=== PATIENT | female | born 1950 | race Caucasian/White ===

== ENCOUNTER 2016-07-21 20:26 | Emergency (ER) | payer OTHER ==
[2016-07-21 20:38] VITALS: BP 157/82
--- NOTE | 2016-07-21 21:03 | ED INFLUENZA/URI COMPLAINT ---
History of Present Illness General Chief Complaint: General Adult Stated Complaint: PT NOT FEELING WELL ,HURT WHEN SHE COUGH Source: patient Exam Limitations: no limitations Vital Signs & Intake/Output Vital Signs & Intake/Output Vital Signs Date Time Temp Pulse Resp B/P Pulse O2 O2 Flow FiO2 Ox Delivery Rate 07/21 2109 Room Air 07/21 2037 99.0 84 22 157/82 95 ED Intake and Output 07/22 0000 07/21 1200 Intake Total 0 Output Total Balance 0 Intake, Oral 0 Patient 125 lb Weight Allergies Coded Allergies: NO KNOWN ALLERGIES (12/01/12) Reconcile Medications Amoxicillin/Potassium Clav (Augmentin 875-125 Tablet) 875 MG-125 MG TABLET 1 TAB PO BID BRONCHITIS Benzonatate (Tessalon Perle) 100 MG CAPSULE 1 CAP PO TID PRN COUGH Triage Note: PER PT COUGH, BODY ACHES X 1 WEEK, DID NOT SEE PMD BUT FEELING LIKE "CRAP" NO CP NO SOB, SOUNDS CONGESTED CO PAIN TO BACK WITH COUGH NO FEVER Triage Nurses Notes Reviewed? yes Onset: Gradual Duration: day(s): Timing: recent history Severity: moderate Prior Episodes/Possible Cause: occassional episodes Modifying Factors: Improves With: rest. Associated Symptoms: cough HPI: 65 yo woman presents with cough productive of phlegm, but no chest pain, wheezing, shortness of breath, fever, chills. "I've had a bad cough for the past few days and now it's getting a bit worse. She is otherwise well. Past History Travel History Traveled to [place] past 21 day No Medical History Any Pertinent Medical History? see below for history Neurological: NONE EENT: NONE Cardiovascular: hypertension Respiratory: NONE Gastrointestinal: NONE Hepatic: NONE Renal: NONE Musculoskeletal: NONE Psychiatric: NONE Endocrine: NONE Surgical History Surgical History: none Psychosocial History What is your primary language Danish Tobacco Use: Never used Family History Hx Contributory? No Review of Systems Review of Systems Constitutional: Reports: no symptoms. EENTM: Reports: no symptoms. Respiratory: Reports: no symptoms. Cardiovascular: Reports: no symptoms. GI: Reports: no symptoms. Genitourinary: Reports: no symptoms. Musculoskeletal: Reports: no symptoms. Skin: Reports: no symptoms. Neurological/Psychological: Reports: no symptoms. Hematologic/Endocrine: Reports: no symptoms. Immunologic/Allergic: Reports: no symptoms. All Other Systems: Reviewed and Negative Physical Exam Physical Exam General Appearance: well developed/nourished, no apparent distress Head: atraumatic, normal appearance Eyes: Bilateral: normal appearance. Ears, Nose, Throat: normal ENT inspection, moist mucous membrane Neck: normal inspection, supple Respiratory: chest non-tender, no respiratory distress, mild rhonchi Cardiovascular: regular rate/rhythm Gastrointestinal: normal bowel sounds, soft, non-tender, no organomegaly Back: normal inspection, normal range of motion Extremities: normal inspection, normal capillary refill, normal range of motion, no edema Neurologic/Psych: no motor/sensory deficits, awake, alert, oriented x 3 Skin: intact, normal color, warm/dry Core Measures Severe Sepsis Present: No Septic Shock Present: No Progress Differential Diagnosis: pharyngitis, sinusitis, bronchitis Plan of Care: Orders Procedure Date/time Status XRY-CHEST XRAY, PA AND LATERAL 07/21 2038 Active Initial ED EKG: none Departure Departure Disposition: HOME OR SELF CARE Condition: Stable Clinical Impression Primary Impression: Bronchitis Referrals: MALISSA EL,DORITA (PCP/Family) Departure Forms: Customer Survey General Discharge Information Prescriptions: Current Visit Scripts Amoxicillin/Potassium Clav (Augmentin 875-125 Tablet) 1 TAB PO BID #20 TAB Benzonatate (Tessalon Perle) 1 CAP PO TID PRN COUGH #10 CAP Comments well appearing with benign exam... pt declines xray... will give trial of abx... close follow up advised.
[2016-07-21] MEDS ORDERED: TESSALON PERLE100 M1 PO (21:04)
[2016-07-21] MEDS ORDERED: AUGMENTIN 875-1 EACH PO (21:04)
== END 2016-07-21 21:11 ==
LOC: ERH 20:26
DX: J40 Bronchitis, not specified as acute or chronic (principal)